=== PATIENT | female | born 1965 | race Caucasian/White ===

== ENCOUNTER 2024-04-06 09:13 | Inpatient (IN) | payer OTHER, SELFPAY ==
[2024-04-06] MEDS ORDERED: fentaNYL 50 mcg/mL 1 mL Vial ONE (09:20)
[2024-04-06] MEDS ORDERED: niCARdipine 25 MG/10 ML SDV ONE (09:26)
[2024-04-06] MEDS ORDERED: Fentanyl CADD 100 ML IV SCH ×2 (09:30→13:00)
[2024-04-06] MEDS ORDERED: Midazolam HCl 2 mg/2 ml Vial ONE (09:32)
[2024-04-06 10:05] LABS: #Basophils Less than 0.03 10x3/uL (0.0-0.2); %Basophils 0.1 % (0.0-1.0); %Eosinophils 2.7 % (0.0-10.0); %Lymphocytes 19.3 % (21.0-51.0); %Monocytes 8.6 % (0.0-10.0); %Neutrophils 68.8 % (42.0-75.0); Hematocrit 32.5 % (36.0-47.0); Hemoglobin 11.3 g/dL (12.0-16.0); Mean Corpuscular HGB CONC 34.8 g/dL (32.0-36.0); Mean Corpuscular Hemoglobin 32.5 pg (27.0-31.0); Mean Corpuscular Volume 93.4 fL (78.0-98.0); Platelet Count 159 10x3/uL (130-400); Red Blood Cell (RBC) Count 3.48 mill/uL (4.20-5.40)
[2024-04-06 10:07] LABS: Actual Bicarbonate (HCO3a) 23.6 mEq/L (22-28); Base Excess (BEa) 23.6 mEq/L (-2.0 to +3.0); CO2 Tension 35.4 mmHg (35.0-45.0); Carboxyhemoglobin (COHb) 1.1 gm% (0.0-3.0); Hematocrit-ABG 36 % (36.0-47.0); Hemoglobin (Hb) 12.2 g/dL (12.0-16.0); pH, Arterial 7.441 (7.35-7.45)
[2024-04-06 10:08] LABS: Analyzer IN Cardio ER; Calcium, Ionized (arterial) 1.09 mmol/L (1.12-1.30); Potassium - ABG Lab 3.22 mmol/L (3.70-5.30)
[2024-04-06 10:19] LABS: INR-International Normal Ratio 1.9; PTT 40.7 sec (22.9-36.1); Prothrombin Time 21.6 sec (12.0-14.7)
[2024-04-06 10:27] LABS: ALT (SGPT) 48 U/L (8-55); AST (SGOT) 89 U/L (5-34); Albumin 1.7 g/dL (3.4-4.8); Anion Gap 9 mmol/L (10-20); BUN (Urea Nitrogen) 7 mg/dL (9.8-20.1); Bilirubin, Total 1.8 mg/dL (0.2-1.2); CK (CPK) 51 U/L (29-168); Calc. Creatinine Clearance 0 mL/min (70-130); Calcium 7.7 mg/dL (7.8-10.44); Carbon Dioxide 22 mmol/L (23-31); Chloride 106 mmol/L (98-107); Estimated GFR 110; Globulin 5.3 g/dL (2.4-3.5); Glucose 121 mg/dL (80-115); Potassium 3.3 mmol/L (3.5-5.1); Sodium 134 mmol/L (136-145)
[2024-04-06 10:32] LABS: Bacteria/HPF None Seen HPF (None Seen); Bilirubin Negative (Negative); Blood, Urine Negative (Negative); CAUTI Indications for Culture Alt mental st,lethar; Clarity Clear (Clear); Glucose, Urine (Dipstick) Normal (Negative); Ketone, Urine Negative (Negative); Leukocyte Negative Leu/uL (Negative); Nitrite Negative (Negative); Protein, Urine (Dipstick) Negative (Neg-Trace); RBC/HPF None Seen HPF (0-3); Squamous Epithelial 0-3 HPF (0-3); Urobilinogen Normal mg/dL (Less than 2); WBC/HPF 0-3 HPF (0-3); pH, Urine 6.5 (5.0-9.0)
[2024-04-06 10:33] LABS: Specific Gravity, Urine Greater than 1.060 (1.002-1.036); Urine Culture Reflex No No
[2024-04-06 11:07] LABS: Troponin I Less than 0.010 ng/mL (< 0.028)
[2024-04-06 11:29] LABS: Alkaline Phosphatase 82 U/L (40-110)
[2024-04-06] MEDS ORDERED: Mag-Al 1200 mg/1200 mg/30 ML UDCUP PO PRN (11:57)
[2024-04-06] MEDS ORDERED: Milk Of Magnesia 30 ML UDCUP PO PRN (11:57)
[2024-04-06] MEDS ORDERED: Ventilator Sedation Protocol 1 EACH FS SCH (12:00)
[2024-04-06 12:33] LABS: Amphetamine Detected (NotDetected); Barbiturates Screen Not Detected (NotDetected); Benzodiazepine Screen Not Detected (NotDetected); Cocaine Metabolite Screen Not Detected (NotDetected); Methadone Not Detected (NotDetected); Methamphetamine Detected (NotDetected); Opiate Screen Not Detected (NotDetected); Oxycodone Screen Not Detected (NotDetected); Phencyclidine (PCP) Not Detected (NotDetected); THC/Cannabinoid Screen Not Detected (NotDetected); Tricyclic Screen Not Detected (NotDetected)
[2024-04-06] MEDS ORDERED: Fentanyl BOLUS 250 ML IVPB PRN (13:00)
[2024-04-06] MEDS ORDERED: Propofol BOLUS 1,000 MG/100 ML VIAL IV PRN (13:00)
[2024-04-06] MEDS ORDERED: Propofol 1,000 MG/100 ML VIAL IV PRN (13:00)
[2024-04-06] MEDS ORDERED: DISCONTINUE PREVIOUS NARCOTIC PAIN MEDICATIONS AND BENZODIAZEPINES FS SCH (13:00)
[2024-04-06] MEDS ORDERED: Electrolyte Replacement Protocol FS PRN (13:15)
[2024-04-06] MEDS: Sodium Chloride 0.9% 1,000 ML IV SCH (14:44)
[2024-04-06] MEDS ORDERED: Iopamidol-370 76% 500 ML MDV (1 ML CHARGE) ONE (14:50)
[2024-04-06 15:21] LABS: Lactic Acid 3.26 mmol/L (0.5-2.2)
[2024-04-06] MEDS: Electrolyte Replacement Protocol 1 EACH IVPB ONE (16:28)
[2024-04-06] MEDS: Potassium Chloride 20 MEQ in Premix 1 BAG IVPB SCH (16:29)
[2024-04-06 16:40] LABS: Platelet Count 166 10x3/uL (130-400)
[2024-04-06 16:52] LABS: Lactic Acid 3.03 mmol/L (0.5-2.2)
[2024-04-06 16:57] LABS: Acetaminophen Less than 10 mcg/mL (Less than 10); Alcohol Less than 10.0 mg/dL (Less than 10); Salicylate Less than 8.0 mg/dL (Less than 8.0)
[2024-04-06 16:59] LABS: Fibrinogen 170 mg/dL (253-463); INR-International Normal Ratio 1.5; PTT 36.6 sec (22.9-36.1); Prothrombin Time 18.3 sec (12.0-14.7)
[2024-04-06 17:07] LABS: D-Dimer Test 16.49 mcg/mL (0.27-0.43)
[2024-04-06] MEDS: Famotidine/PF 20 mg/2ml Vial SLOW IVP SCH (20:28)
[2024-04-06 22:19] LABS: Amphetamine Detected (NotDetected); Barbiturates Screen Not Detected (NotDetected); Benzodiazepine Screen Not Detected (NotDetected); Cocaine Metabolite Screen Not Detected (NotDetected); Methadone Not Detected (NotDetected); Methamphetamine Detected (NotDetected); Opiate Screen Not Detected (NotDetected); Oxycodone Screen Not Detected (NotDetected); Phencyclidine (PCP) Not Detected (NotDetected); THC/Cannabinoid Screen Not Detected (NotDetected); Tricyclic Screen Not Detected (NotDetected)
[2024-04-07 01:18] LABS: Potassium 4.5 mmol/L (3.5-5.1)
[2024-04-07 04:59] LABS: #Basophils 0.03 10x3/uL (0.0-0.2); %Basophils 0.2 % (0.0-1.0); %Lymphocytes 30.9 % (21.0-51.0); %Neutrophils 50.3 % (42.0-75.0); Hematocrit 33.4 % (36.0-47.0); Hemoglobin 11.3 g/dL (12.0-16.0); Mean Corpuscular HGB CONC 33.8 g/dL (32.0-36.0); Mean Corpuscular Volume 94.6 fL (78.0-98.0); Mean Platelet Volume 10.9 fL (7.4-10.4); Platelet Count 162 10x3/uL (130-400); RBC Distribution Width 15.4 % (11.5-14.5); Red Blood Cell (RBC) Count 3.53 mill/uL (4.20-5.40)
[2024-04-07 05:30] LABS: ALT (SGPT) 50 U/L (8-55); AST (SGOT) 92 U/L (5-34); Albumin 2.1 g/dL (3.5-5.0); Alkaline Phosphatase 85 U/L (40-110); Anion Gap 10 mmol/L (10-20); BUN (Urea Nitrogen) 11 mg/dL (9.8-20.1); Calc. Creatinine Clearance 106 mL/min (70-130); Calcium 8.1 mg/dL (7.8-10.44); Carbon Dioxide 22 mmol/L (22-29); Chloride 110 mmol/L (98-107); Estimated GFR 102; Globulin 5.8 g/dL (2.4-3.5); Glucose 84 mg/dL (70-105); Potassium 3.7 mmol/L (3.5-5.1); Protein, Total 7.9 g/dL (6.0-8.3); Sodium 138 mmol/L (136-145)
[2024-04-07 08:51] LABS: INR-International Normal Ratio 1.5; PTT 36.5 sec (22.9-36.1); Prothrombin Time 18.4 sec (12.0-14.7)
[2024-04-07] MEDS: Labetalol HCl 100 MG/20 ML VIAL SLOW IVP PRN (12:11)
[2024-04-07] MEDS: niCARdipine 25 MG in Sodium Chloride 0.9% 250 ML 250 ML IVPB PRN (18:53)
[2024-04-08 04:13] LABS: #Basophils Less than 0.03 10x3/uL (0.0-0.2); %Basophils 0.2 % (0.0-1.0); %Eosinophils 3.7 % (0.0-10.0); %Lymphocytes 18.1 % (21.0-51.0); %Monocytes 12.9 % (0.0-10.0); %Neutrophils 64.7 % (42.0-75.0); Hematocrit 31.6 % (36.0-47.0); Hemoglobin 10.4 g/dL (12.0-16.0); Mean Corpuscular HGB CONC 32.9 g/dL (32.0-36.0); Mean Corpuscular Hemoglobin 32.2 pg (27.0-31.0); Mean Corpuscular Volume 97.8 fL (78.0-98.0); Platelet Count 149 10x3/uL (130-400); RBC Distribution Width 15.2 % (11.5-14.5); Red Blood Cell (RBC) Count 3.23 mill/uL (4.20-5.40)
[2024-04-08 04:40] LABS: Anion Gap 10 mmol/L (10-20); BUN (Urea Nitrogen) 10 mg/dL (9.8-20.1); Calc. Creatinine Clearance 153 mL/min (70-130); Calcium 6.5 mg/dL (7.8-10.44); Carbon Dioxide 16 mmol/L (22-29); Chloride 116 mmol/L (98-107); Estimated GFR 111; Glucose 88 mg/dL (70-105); Potassium 3.1 mmol/L (3.5-5.1); Sodium 139 mmol/L (136-145)
[2024-04-08] MEDS: CALCIUM GLUC 1 GM/NS 50 ML 1 GM in Premix 1 BAG IVPB SCH (04:49)
[2024-04-08] MEDS ORDERED: Electrolyte Replacement Protocol FS PRN (06:15)
[2024-04-08 07:12] LABS: Actual Bicarbonate (HCO3a) 21.6 mEq/L (22-28); Base Excess (BEa) -0.1 mEq/L (-2.0 to +3.0); CO2 Tension 27.1 mmHg (35.0-45.0); Calcium, Ionized (arterial) 1.19 mmol/L (1.12-1.30); Carboxyhemoglobin (COHb) 1.2 gm% (0.0-3.0); Hematocrit-ABG 37 % (36.0-47.0); Hemoglobin (Hb) 12.7 g/dL (12.0-16.0); O2 Tension (PaO2), arterial 79.5 mmHg (> 80.0); Potassium - ABG Lab 3.75 mmol/L (3.70-5.30); pH, Arterial 7.519 (7.35-7.45)
[2024-04-08 07:31] LABS: ALV-art Gradient 171.825 mmHg (0-20); Puncture Site Right Brachial art
[2024-04-08] MEDS: Acetaminophen 325 MG TAB PO PRN (07:47)
[2024-04-08] MEDS: Potassium Chloride 20 MEQ in Premix 1 BAG IVPB SCH (07:48)
[2024-04-08] MEDS: Scopolamine 1 mg/72 hour Patch TD SCH (09:48)
[2024-04-09] MEDS: Acetaminophen 650 MG/20.3 ML UDCUP PO PRN (00:47)
[2024-04-09 05:31] LABS: Hematocrit 32.2 % (36.0-47.0); Hemoglobin 10.6 g/dL (12.0-16.0); Mean Corpuscular HGB CONC 32.9 g/dL (32.0-36.0); Mean Corpuscular Hemoglobin 32.2 pg (27.0-31.0); Mean Corpuscular Volume 97.9 fL (78.0-98.0); Mean Platelet Volume 11.6 fL (7.4-10.4); Platelet Count 121 10x3/uL (130-400); RBC Distribution Width 15.1 % (11.5-14.5); Red Blood Cell (RBC) Count 3.29 mill/uL (4.20-5.40)
[2024-04-09 05:44] LABS: Anion Gap 8 mmol/L (10-20); BUN (Urea Nitrogen) 18 mg/dL (9.8-20.1); Calc. Creatinine Clearance 118 mL/min (70-130); Calcium 8.3 mg/dL (7.8-10.44); Carbon Dioxide 24 mmol/L (22-29); Chloride 111 mmol/L (98-107); Estimated GFR 105; Glucose 134 mg/dL (70-105); Potassium 3.8 mmol/L (3.5-5.1); Sodium 139 mmol/L (136-145)
[2024-04-09 06:05] LABS: Anisocytosis SLIGHT = 6-15 cells HPF (0-5); Band 5 % (5-11); Eosinophils 9 % (0-10); Hypochromia SLIGHT = 6-15 cells HPF (0-5); Lymphocytes 9 % (21-51); Monocytes 16 % (0-10); Neutrophil 59 % (42-75); Platelet Adequacy Comment Platelets Normal; Reactive Lymphocytes 1 % (0-10)
[2024-04-09] MEDS: hydrALAZINE 20 MG/ML VIAL SLOW IVP PRN (21:44)
[2024-04-10 03:55] LABS: #Basophils 0.06 10x3/uL (0.0-0.2); %Basophils 0.5 % (0.0-1.0); %Eosinophils 5.5 % (0.0-10.0); %Lymphocytes 29.6 % (21.0-51.0); %Monocytes 16.9 % (0.0-10.0); %Neutrophils 46.9 % (42.0-75.0); Hematocrit 33.4 % (36.0-47.0); Hemoglobin 11.2 g/dL (12.0-16.0); Mean Corpuscular HGB CONC 33.5 g/dL (32.0-36.0); Mean Corpuscular Hemoglobin 33.8 pg (27.0-31.0); Mean Corpuscular Volume 100.9 fL (78.0-98.0); Mean Platelet Volume 12.4 fL (7.4-10.4); Platelet Count 107 10x3/uL (130-400); Red Blood Cell (RBC) Count 3.31 mill/uL (4.20-5.40)
[2024-04-10 04:09] LABS: ALT (SGPT) 40 U/L (8-55); AST (SGOT) 82 U/L (5-34); Albumin 1.9 g/dL (3.5-5.0); Alkaline Phosphatase 76 U/L (40-110); Anion Gap 11 mmol/L (10-20); BUN (Urea Nitrogen) 17 mg/dL (9.8-20.1); Bilirubin, Total 2.2 mg/dL (0.2-1.2); Calc. Creatinine Clearance 118 mL/min (70-130); Calcium 8.2 mg/dL (7.8-10.44); Carbon Dioxide 23 mmol/L (22-29); Chloride 111 mmol/L (98-107); Estimated GFR 104; Globulin 6.7 g/dL (2.4-3.5); Glucose 141 mg/dL (70-105); Potassium 4.1 mmol/L (3.5-5.1); Protein, Total 8.6 g/dL (6.0-8.3); Sodium 141 mmol/L (136-145)
[2024-04-10] MEDS: Piperacillin/Tazobactam 3.375 GM in Sodium Chloride 0.9% 100 ML IVPB SCH ×2 (08:55→13:45)
[2024-04-10] MEDS: Lorazepam 2 MG/ML VIAL SLOW IVP PRN (17:49)
[2024-04-10] MEDS: Morphine 2 MG/ML VIAL SLOW IVP PRN (20:51)
[2024-04-11 04:15] LABS: #Basophils 0.06 10x3/uL (0.0-0.2); %Basophils 0.5 % (0.0-1.0); %Eosinophils 9.7 % (0.0-10.0); %Lymphocytes 24.6 % (21.0-51.0); %Monocytes 15.2 % (0.0-10.0); %Neutrophils 49.2 % (42.0-75.0); Hematocrit 33.1 % (36.0-47.0); Hemoglobin 10.8 g/dL (12.0-16.0); Mean Corpuscular HGB CONC 32.6 g/dL (32.0-36.0); Mean Corpuscular Hemoglobin 33.1 pg (27.0-31.0); Mean Corpuscular Volume 101.5 fL (78.0-98.0); Mean Platelet Volume 12.1 fL (7.4-10.4); Platelet Count 105 10x3/uL (130-400); RBC Distribution Width 15.1 % (11.5-14.5); Red Blood Cell (RBC) Count 3.26 mill/uL (4.20-5.40)
[2024-04-11 04:59] LABS: Anion Gap 9 mmol/L (10-20); BUN (Urea Nitrogen) 19 mg/dL (9.8-20.1); Calc. Creatinine Clearance 125 mL/min (70-130); Calcium 8.1 mg/dL (7.8-10.44); Carbon Dioxide 23 mmol/L (22-29); Chloride 114 mmol/L (98-107); Estimated GFR 105; Glucose 111 mg/dL (70-105); Potassium 3.7 mmol/L (3.5-5.1); Sodium 142 mmol/L (136-145)
[2024-04-11 11:52] VITALS: BMI 25.9
[2024-04-11] MEDS: Senokot 8.6 MG TAB PO PRN (14:52)
[2024-04-11] MEDS: Polyethylene Glycol 3350 17 GM Packet PER TUBE SCH (14:52)
[2024-04-11] MEDS: Docusate Sodium 100 MG/10 ML UDCUP PO SCH (20:20)
[2024-04-12 03:29] LABS: #Basophils 0.06 10x3/uL (0.0-0.2); %Basophils 0.6 % (0.0-1.0); %Eosinophils 10.2 % (0.0-10.0); %Lymphocytes 19.1 % (21.0-51.0); %Monocytes 13.1 % (0.0-10.0); %Neutrophils 56.3 % (42.0-75.0); Hematocrit 32.4 % (36.0-47.0); Hemoglobin 10.2 g/dL (12.0-16.0); Mean Corpuscular HGB CONC 31.5 g/dL (32.0-36.0); Mean Corpuscular Volume 101.6 fL (78.0-98.0); Mean Platelet Volume 12.3 fL (7.4-10.4); Platelet Count 97 10x3/uL (130-400); RBC Distribution Width 15.4 % (11.5-14.5); Red Blood Cell (RBC) Count 3.19 mill/uL (4.20-5.40)
[2024-04-12 03:47] LABS: Anion Gap 9 mmol/L (10-20); BUN (Urea Nitrogen) 18 mg/dL (9.8-20.1); Calc. Creatinine Clearance 133 mL/min (70-130); Carbon Dioxide 26 mmol/L (22-29); Chloride 114 mmol/L (98-107); Estimated GFR 106; Glucose 121 mg/dL (70-105); Potassium 3.9 mmol/L (3.5-5.1); Sodium 145 mmol/L (136-145)
[2024-04-12] MEDS: Polyethylene Glycol 3350 17 GM Packet PER TUBE SCH (09:54)
[2024-04-13 04:36] LABS: #Basophils 0.12 10x3/uL (0.0-0.2); %Basophils 0.9 % (0.0-1.0); %Eosinophils 6.8 % (0.0-10.0); %Lymphocytes 22.5 % (21.0-51.0); %Monocytes 13.6 % (0.0-10.0); %Neutrophils 55.1 % (42.0-75.0); Hematocrit 35.8 % (36.0-47.0); Hemoglobin 11.9 g/dL (12.0-16.0); Mean Corpuscular HGB CONC 33.2 g/dL (32.0-36.0); Mean Corpuscular Hemoglobin 32.9 pg (27.0-31.0); Mean Corpuscular Volume 98.9 fL (78.0-98.0); Mean Platelet Volume 13.3 fL (7.4-10.4); Platelet Count 135 10x3/uL (130-400); RBC Distribution Width 16.1 % (11.5-14.5); Red Blood Cell (RBC) Count 3.62 mill/uL (4.20-5.40)
[2024-04-13 04:46] LABS: Anion Gap 12 mmol/L (10-20); BUN (Urea Nitrogen) 20 mg/dL (9.8-20.1); Calc. Creatinine Clearance 126 mL/min (70-130); Calcium 8.4 mg/dL (7.8-10.44); Carbon Dioxide 22 mmol/L (22-29); Chloride 114 mmol/L (98-107); Estimated GFR 104; Glucose 133 mg/dL (70-105); Potassium 4.1 mmol/L (3.5-5.1); Sodium 144 mmol/L (136-145)
[2024-04-13 05:08] VITALS: BMI 26.9
[2024-04-13] MEDS: Ondansetron PF 4 MG/2 ML Vial IVP PRN (11:13)
[2024-04-13] MEDS: Acetaminophen 650 MG Suppository PR PRN (11:17)
[2024-04-13] MEDS: Amlodipine 5 MG TAB PO SCH (12:14)
[2024-04-13 18:55] LABS: #Basophils 0.09 10x3/uL (0.0-0.2); %Basophils 0.7 % (0.0-1.0); %Eosinophils 3.3 % (0.0-10.0); %Lymphocytes 24.1 % (21.0-51.0); %Monocytes 15.9 % (0.0-10.0); %Neutrophils 54.3 % (42.0-75.0); Hematocrit 33.3 % (36.0-47.0); Hemoglobin 10.8 g/dL (12.0-16.0); Mean Corpuscular HGB CONC 32.4 g/dL (32.0-36.0); Mean Corpuscular Hemoglobin 32.7 pg (27.0-31.0); Mean Corpuscular Volume 100.9 fL (78.0-98.0); Mean Platelet Volume 13.1 fL (7.4-10.4); Platelet Count 121 10x3/uL (130-400); RBC Distribution Width 16.3 % (11.5-14.5)
[2024-04-13 19:04] LABS: INR-International Normal Ratio 1.5; Prothrombin Time 18.4 sec (12.0-14.7)
[2024-04-13 19:05] LABS: PTT 32.1 sec (22.9-36.1)
[2024-04-13 19:20] LABS: Hemoglobin A1c Less than 4.0 % (4.0-6.0); Phosphorus 3.7 mg/dL (2.5-4.5)
[2024-04-13 19:22] LABS: ALT (SGPT) 57 U/L (Less than 34); AST (SGOT) 147 U/L (11-34); Albumin 1.8 g/dL (3.1-4.5); Alkaline Phosphatase 75 U/L (40-110); Anion Gap 11 mmol/L (10-20); BUN (Urea Nitrogen) 22 mg/dL (9.8-20.1); Bilirubin, Total 2.3 mg/dL (0.3-1.2); Calc. Creatinine Clearance 110 mL/min (70-130); Calcium 8.3 mg/dL (7.8-10.44); Carbon Dioxide 24 mmol/L (22-29); Chloride 114 mmol/L (98-107); Estimated GFR 101; Globulin 6.4 g/dL (2.4-3.5); Glucose 136 mg/dL (70-105); Magnesium 2.2 mg/dL (1.6-2.6); Potassium 3.6 mmol/L (3.5-5.1); Protein, Total 8.2 g/dL (6.0-8.3); Sodium 145 mmol/L (136-145)
[2024-04-13] MEDS: Hydrocortisone Sod Succ/PF 100 mg/2 ml Vial IVP SCH (19:53)
[2024-04-13 20:01] LABS: Macrocytosis SLIGHT = 6-15 cells HPF (0-5); Platelet Adequacy Comment Platelets Decreased; Polychromasia SLIGHT = 2-3 cells HPF (0-2); Target Cells SLIGHT = 2-5 cells HPF (0-1)
[2024-04-13 20:48] LABS: Actual Bicarbonate (HCO3a) 23.6 mEq/L (22-28); Base Excess (BEa) 2.6 mEq/L (-2.0 to +3.0); CO2 Tension 25.7 mmHg (35.0-45.0); Calcium, Ionized (arterial) 1.15 mmol/L (1.12-1.30); Carboxyhemoglobin (COHb) 0.3 gm% (0.0-3.0); Hematocrit-ABG 33 % (36.0-47.0); Hemoglobin (Hb) 11.3 g/dL (12.0-16.0); O2 Tension (PaO2), arterial 415.1 mmHg (> 80.0); Potassium - ABG Lab 3.63 mmol/L (3.70-5.30)
[2024-04-13 20:50] LABS: ALV-art Gradient 265.775 mmHg (0-20); Puncture Site Arterial Line
[2024-04-13] MEDS: Albumin 25% 25 GM (100 mL) BOT IVPB SCH (20:53)
[2024-04-13] MEDS ORDERED: DISCONTINUE PREVIOUS NARCOTIC PAIN MEDICATIONS AND BENZODIAZEPINES FS SCH (21:15)
[2024-04-13] MEDS ORDERED: Fentanyl BOLUS 250 ML IVPB PRN (21:15)
[2024-04-13] MEDS ORDERED: Propofol BOLUS 1,000 MG/100 ML VIAL IV PRN (21:15)
[2024-04-13] MEDS ORDERED: Ventilator Sedation Protocol 1 EACH FS SCH (21:15)
[2024-04-13] MEDS: Furosemide 40 MG (4 mL) VIAL SLOW IVP SCH (21:32)
[2024-04-13] MEDS: Potassium Chloride 20 MEQ in Premix 1 BAG IVPB SCH (21:40)
[2024-04-13] MEDS: Propofol 1,000 MG/100 ML VIAL IV PRN (21:49)
[2024-04-13] MEDS: Ipratropium/Albuterol 3 ML NEB NEB SCH (22:32)
[2024-04-13 22:35] VITALS: BP 151/70
[2024-04-14] MEDS: Hydrocortisone Sod Succ/PF 100 mg/2 ml Vial IVP SCH (03:51)
[2024-04-14 05:26] LABS: Actual Bicarbonate (HCO3a) 21.9 mEq/L (22-28); Base Excess (BEa) 0.6 mEq/L (-2.0 to +3.0); Calcium, Ionized (arterial) 1.13 mmol/L (1.12-1.30); Carboxyhemoglobin (COHb) 0.2 gm% (0.0-3.0); Hematocrit-ABG 29 % (36.0-47.0); O2 Tension (PaO2), arterial 401.1 mmHg (> 80.0); Potassium - ABG Lab 3.36 mmol/L (3.70-5.30); pH, Arterial 7.562 (7.35-7.45)
[2024-04-14 05:28] LABS: CO2 Tension 24.9 mmHg (35.0-45.0); Puncture Site Arterial Line
[2024-04-14 05:29] LABS: ALV-art Gradient 280.775 mmHg (0-20)
[2024-04-14 05:41] LABS: #Basophils 0.04 10x3/uL (0.0-0.2); %Basophils 0.4 % (0.0-1.0); %Eosinophils 0.4 % (0.0-10.0); %Lymphocytes 15.2 % (21.0-51.0); %Monocytes 6.2 % (0.0-10.0); %Neutrophils 76.1 % (42.0-75.0); Hemoglobin 9.5 g/dL (12.0-16.0); Mean Corpuscular HGB CONC 32.8 g/dL (32.0-36.0); Mean Corpuscular Hemoglobin 33.5 pg (27.0-31.0); Mean Corpuscular Volume 102.1 fL (78.0-98.0); Platelet Count 99 10x3/uL (130-400); RBC Distribution Width 16.3 % (11.5-14.5); Red Blood Cell (RBC) Count 2.84 mill/uL (4.20-5.40)
[2024-04-14 06:17] LABS: Anion Gap 13 mmol/L (10-20); BUN (Urea Nitrogen) 23 mg/dL (9.8-20.1); Calc. Creatinine Clearance 104 mL/min (70-130); Calcium 8.4 mg/dL (7.8-10.44); Carbon Dioxide 24 mmol/L (22-29); Chloride 114 mmol/L (98-107); Estimated GFR 100; Glucose 147 mg/dL (70-105); Potassium 3.5 mmol/L (3.5-5.1); Sodium 147 mmol/L (136-145)
[2024-04-14] MEDS: Lorazepam 2 MG/ML VIAL SLOW IVP PRN (06:34)
[2024-04-14 06:47] LABS: INR-International Normal Ratio 1.6; Prothrombin Time 19.4 sec (12.0-14.7)
[2024-04-14 06:48] LABS: PTT 34.2 sec (22.9-36.1)
[2024-04-14 06:52] LABS: Phosphorus 3.3 mg/dL (2.5-4.5)
[2024-04-14 06:53] LABS: Lactic Acid 1.56 mmol/L (0.50-2.20)
[2024-04-14 06:55] LABS: CK (CPK) 51 U/L (29-168); Lipase 79 U/L (8-78)
[2024-04-14] MEDS ORDERED: acetaZOLAMIDE Sodium 500 MG in Sodium Chloride 0.9% 50 ML IVPB SCH (07:00)
[2024-04-14 07:01] LABS: Troponin I 0.046 ng/mL (< 0.028)
[2024-04-14 07:26] VITALS: TEMP 98
[2024-04-14 07:45] LABS: Bacteria/HPF None Seen HPF (None Seen); RBC/HPF 0-3 HPF (0-3); Squamous Epithelial 0-3 HPF (0-3); WBC/HPF 0-3 HPF (0-3)
[2024-04-14] MEDS ORDERED: Potassium Chloride 20 MEQ TAB PO SCH (08:00)
[2024-04-14 08:32] LABS: ALT (SGPT) 50 U/L (Less than 34); AST (SGOT) 124 U/L (11-34); Albumin 2.6 g/dL (3.1-4.5); Anion Gap 10 mmol/L (10-20); BUN (Urea Nitrogen) 23 mg/dL (9.8-20.1); Calc. Creatinine Clearance 111 mL/min (70-130); Calcium 8.6 mg/dL (7.8-10.44); Carbon Dioxide 24 mmol/L (22-29); Chloride 116 mmol/L (98-107); Estimated GFR 102; Globulin 5.4 g/dL (2.4-3.5); Glucose 146 mg/dL (70-105); Magnesium 2.3 mg/dL (1.6-2.6); Potassium 3.4 mmol/L (3.5-5.1); Sodium 147 mmol/L (136-145)
[2024-04-14] MEDS: Albumin 25% 25 GM (100 mL) BOT IVPB SCH ×2 (08:32→15:46)
[2024-04-14] MEDS: Potassium Chloride 40 MEQ in Premix 1 BAG IVPB SCH ×2 (08:32→20:29)
[2024-04-14] MEDS: Furosemide 40 MG (4 mL) VIAL SLOW IVP SCH (08:33)
[2024-04-14] MEDS: Sterile Water 10 ML VIAL IVP SCH (08:33)
[2024-04-14] MEDS: acetaZOLAMIDE Sodium 500 mg Vial IVP SCH (08:33)
[2024-04-14] MEDS: Amlodipine 5 MG TAB PO SCH (08:33)
[2024-04-14] MEDS: Fentanyl CADD 100 ML IV SCH (08:33)
[2024-04-14 09:29] LABS: Alkaline Phosphatase 59 U/L (40-110)
[2024-04-14] MEDS: Vancomycin (BATCH) 1.5 GM in Premix 1 BAG IVPB SCH (10:52)
[2024-04-14] MEDS: Vecuronium 10 MG VIAL IV SCH (12:48)
[2024-04-14] MEDS ORDERED: Iopamidol-370 76% 500 ML MDV (1 ML CHARGE) ONE (13:13)
[2024-04-14] MEDS ORDERED: Albumin 25% 25 GM (100 mL) BOT IVPB SCH (15:45)
[2024-04-14 17:12] LABS: Actual Bicarbonate (HCO3a) 21.7 mEq/L (22-28); Base Excess (BEa) -2.6 mEq/L (-2.0 to +3.0); CO2 Tension 35.1 mmHg (35.0-45.0); Calcium, Ionized (arterial) 1.19 mmol/L (1.12-1.30); Carboxyhemoglobin (COHb) 0.7 gm% (0.0-3.0); Hematocrit-ABG 26 % (36.0-47.0); Hemoglobin (Hb) 8.8 g/dL (12.0-16.0); O2 Tension (PaO2), arterial 308.8 mmHg (> 80.0); Potassium - ABG Lab 2.73 mmol/L (3.70-5.30); pH, Arterial 7.409 (7.35-7.45)
[2024-04-14 17:14] LABS: ALV-art Gradient 360.325 mmHg (0-20); Puncture Site Arterial Line
[2024-04-14 19:10] LABS: Troponin I 0.028 ng/mL (< 0.028)
[2024-04-14 19:16] LABS: ALT (SGPT) 33 U/L (Less than 34); AST (SGOT) 74 U/L (11-34); Albumin 4.5 g/dL (3.1-4.5); Alkaline Phosphatase 38 U/L (40-110); Anion Gap 14 mmol/L (10-20); BUN (Urea Nitrogen) 22 mg/dL (9.8-20.1); Bilirubin, Total 2.5 mg/dL (0.3-1.2); CK (CPK) 33 U/L (29-168); Calc. Creatinine Clearance 100 mL/min (70-130); Calcium 8.9 mg/dL (7.8-10.44); Carbon Dioxide 24 mmol/L (22-29); Chloride 116 mmol/L (98-107); Estimated GFR 99; Globulin 3.7 g/dL (2.4-3.5); Glucose 123 mg/dL (70-105); Lipase 26 U/L (8-78); Potassium 2.7 mmol/L (3.5-5.1); Protein, Total 8.2 g/dL (6.0-8.3); Sodium 151 mmol/L (136-145)
[2024-04-14 20:42] LABS: Bacteria/HPF None Seen HPF (None Seen); RBC/HPF 0-3 HPF (0-3); Squamous Epithelial None Seen HPF (0-3); WBC/HPF 0-3 HPF (0-3)
[2024-04-14 21:09] LABS: Bilirubin Negative (Negative); Blood, Urine Negative (Negative); Glucose, Urine (Dipstick) Negative (Negative); Ketone, Urine Negative (Negative); Leukocyte Negative (Negative); Nitrite Negative (Negative); Protein, Urine (Dipstick) Negative (Neg-Trace); Specific Gravity, Urine 1.015 (1.005-1.030); Urobilinogen 0.2 mg/dL (Less than 2); pH, Urine 6.5 (5.0-9.0)
[2024-04-14 21:10] LABS: Clarity Clear (Clear)
[2024-04-14 21:20] LABS: Actual Bicarbonate (HCO3a) 21.5 mEq/L (22-28); CO2 Tension 35.8 mmHg (35.0-45.0); Calcium, Ionized (arterial) 1.18 mmol/L (1.12-1.30); Carboxyhemoglobin (COHb) 0.2 gm% (0.0-3.0); Hematocrit-ABG 25 % (36.0-47.0); Hemoglobin (Hb) 8.6 g/dL (12.0-16.0); O2 Tension (PaO2), arterial 271.7 mmHg (> 80.0); Potassium - ABG Lab 2.95 mmol/L (3.70-5.30); pH, Arterial 7.396 (7.35-7.45)
[2024-04-14 21:22] LABS: Puncture Site Arterial Line
[2024-04-14] MEDS ORDERED: Vancomycin (BATCH) 1.25 GM in Premix 1 BAG IVPB SCH (23:00)
[2024-04-15] MEDS: Potassium Chloride 20 MEQ in Premix 1 BAG IVPB SCH (00:55)
[2024-04-15] MEDS: VANCOMYCIN 1.25 GM/250 ML BAG 1.25 GM in Premix 1 BAG IVPB SCH ×2 (00:55→11:37)
[2024-04-15 03:39] LABS: #Basophils Less than 0.03 10x3/uL (0.0-0.2); #Eosinophils Less than 0.03 10x3/uL (0.0-0.7); %Basophils 0.2 % (0.0-1.0); %Lymphocytes 10.6 % (21.0-51.0); %Monocytes 8.8 % (0.0-10.0); %Neutrophils 79.1 % (42.0-75.0); Hematocrit 26.1 % (36.0-47.0); Hemoglobin 8.2 g/dL (12.0-16.0); Mean Corpuscular HGB CONC 31.4 g/dL (32.0-36.0); Mean Corpuscular Volume 108.3 fL (78.0-98.0); Mean Platelet Volume 14.1 fL (7.4-10.4); Platelet Count 73 10x3/uL (130-400); Red Blood Cell (RBC) Count 2.41 mill/uL (4.20-5.40)
[2024-04-15 04:04] LABS: Anion Gap 13 mmol/L (10-20); BUN (Urea Nitrogen) 27 mg/dL (9.8-20.1); Calc. Creatinine Clearance 92 mL/min (70-130); Calcium 8.8 mg/dL (7.8-10.44); Carbon Dioxide 21 mmol/L (22-29); Chloride 119 mmol/L (98-107); Estimated GFR 91; Glucose 121 mg/dL (70-105); Potassium 3.5 mmol/L (3.5-5.1); Sodium 149 mmol/L (136-145)
[2024-04-15 04:06] LABS: Vancomycin, Random 12.9 ug/mL (See Comment)
[2024-04-15 06:23] LABS: Troponin I 0.099 ng/mL (< 0.028)
[2024-04-15 06:30] LABS: ALT (SGPT) 31 U/L (Less than 34); AST (SGOT) 66 U/L (11-34); Albumin 3.8 g/dL (3.1-4.5); Alkaline Phosphatase 36 U/L (40-110); Amylase 55 U/L (25-125); Anion Gap 10 mmol/L (10-20); BUN (Urea Nitrogen) 27 mg/dL (9.8-20.1); Bilirubin, Total 2.1 mg/dL (0.3-1.2); CK (CPK) 30 U/L (29-168); Calc. Creatinine Clearance 91 mL/min (70-130); Calcium 8.7 mg/dL (7.8-10.44); Carbon Dioxide 23 mmol/L (22-29); Chloride 118 mmol/L (98-107); Estimated GFR 91; Globulin 3.8 g/dL (2.4-3.5); Glucose 128 mg/dL (70-105); Potassium 3.3 mmol/L (3.5-5.1); Protein, Total 7.6 g/dL (6.0-8.3); Sodium 148 mmol/L (136-145)
[2024-04-15] MEDS: Furosemide 40 MG (4 mL) VIAL SLOW IVP SCH (06:30)
[2024-04-15] MEDS: Potassium Chloride 40 MEQ in Premix 1 BAG IVPB SCH ×2 (07:26→12:32)
[2024-04-15 08:01] LABS: Bacteria/HPF None Seen HPF (None Seen); Bilirubin Negative (Negative); Blood, Urine Negative (Negative); Clarity Clear (Clear); Glucose, Urine (Dipstick) Normal (Negative); Ketone, Urine Negative (Negative); Leukocyte Negative Leu/uL (Negative); Nitrite Negative (Negative); Protein, Urine (Dipstick) Negative (Neg-Trace); RBC/HPF 0-3 HPF (0-3); Specific Gravity, Urine 1.022 (1.002-1.036); Squamous Epithelial None Seen HPF (0-3); Urobilinogen Normal mg/dL (Less than 2); WBC/HPF 0-3 HPF (0-3); pH, Urine 5.5 (5.0-9.0)
[2024-04-15 11:39] LABS: #Basophils Less than 0.03 10x3/uL (0.0-0.2); #Eosinophils Less than 0.03 10x3/uL (0.0-0.7); %Basophils 0.1 % (0.0-1.0); %Lymphocytes 10.4 % (21.0-51.0); %Neutrophils 78.9 % (42.0-75.0); Hematocrit 24.9 % (36.0-47.0); Hemoglobin 7.9 g/dL (12.0-16.0); Mean Corpuscular HGB CONC 31.7 g/dL (32.0-36.0); Mean Corpuscular Hemoglobin 33.6 pg (27.0-31.0); Mean Platelet Volume 13.1 fL (7.4-10.4); Platelet Count 74 10x3/uL (130-400); RBC Distribution Width 16.3 % (11.5-14.5); Red Blood Cell (RBC) Count 2.35 mill/uL (4.20-5.40)
[2024-04-15 11:49] LABS: Phosphorus 3.1 mg/dL (2.5-4.5)
[2024-04-15 11:51] LABS: ALT (SGPT) 30 U/L (Less than 34); AST (SGOT) 61 U/L (11-34); Albumin 3.7 g/dL (3.1-4.5); Alkaline Phosphatase 39 U/L (40-110); Anion Gap 10 mmol/L (10-20); BUN (Urea Nitrogen) 30 mg/dL (9.8-20.1); Calc. Creatinine Clearance 84 mL/min (70-130); Calcium 8.5 mg/dL (7.8-10.44); Carbon Dioxide 24 mmol/L (22-29); Chloride 119 mmol/L (98-107); Estimated GFR 83; Globulin 3.7 g/dL (2.4-3.5); Glucose 138 mg/dL (70-105); Magnesium 2.5 mg/dL (1.6-2.6); Potassium 3.1 mmol/L (3.5-5.1); Protein, Total 7.4 g/dL (6.0-8.3); Sodium 150 mmol/L (136-145)
[2024-04-15] MEDS ORDERED: Lorazepam 2 MG/ML VIAL SLOW IVP PRN (11:54)
[2024-04-15] MEDS ORDERED: Morphine 2 MG/ML VIAL SLOW IVP PRN (12:02)
[2024-04-15] MEDS: Lorazepam 2 MG/ML VIAL SLOW IVP PRN (13:14)
[2024-04-15] MEDS: Morphine 4 MG/ML VIAL SLOW IVP PRN (13:14)
[2024-04-15] MEDS: Morphine 2 MG/ML VIAL SLOW IVP PRN ×2 (14:48→15:09)
[2024-04-15] MEDS: Heparin 10,000 UNITS/1 ML VIAL SLOW IVP SCH (15:09)
== END 2024-04-15 15:41 | disposition expired | DRG 64 ==
LOC: ERS 09:13 → EDBD 12:51 → CCU 12:51
PROVIDERS: ADMIT Family Medicine; ATTEND Internal Medicine
PROC: 0BH17EZ Insertion of Endotracheal Airway into Trachea, Via Natural or Artificial Opening (ICD-10-PCS; 2024-04-06)
PROC: 5A1955Z Respiratory Ventilation, Greater than 96 Consecutive Hours (ICD-10-PCS; 2024-04-06)
PROC: 30233L1 Transfusion of Nonautologous Fresh Plasma into Peripheral Vein, Percutaneous Approach (ICD-10-PCS; 2024-04-06)
PROC: 30233K1 Transfusion of Nonautologous Frozen Plasma into Peripheral Vein, Percutaneous Approach (ICD-10-PCS; 2024-04-06)
PROC: 6A550Z2 Pheresis of Platelets, Single (ICD-10-PCS; 2024-04-06)
PROC: 4A133R1 Monitoring of Arterial Saturation, Peripheral, Percutaneous Approach (ICD-10-PCS; 2024-04-08)
PROC: 3E03329 Introduction of Other Anti-infective into Peripheral Vein, Percutaneous Approach (ICD-10-PCS; 2024-04-10)
PROC: 02HV33Z Insertion of Infusion Device into Superior Vena Cava, Percutaneous Approach (ICD-10-PCS; principal; 2024-04-13)
PROC: B548ZZA Ultrasonography of Superior Vena Cava, Guidance (ICD-10-PCS; 2024-04-13)
PROC: 0B978ZX Drainage of Left Main Bronchus, Via Natural or Artificial Opening Endoscopic, Diagnostic (ICD-10-PCS; 2024-04-14)
PROC: 0B9K8ZX Drainage of Right Lung, Via Natural or Artificial Opening Endoscopic, Diagnostic (ICD-10-PCS; 2024-04-14)
DX: I60.9 Nontraumatic subarachnoid hemorrhage, unspecified (principal); G93.41 Metabolic encephalopathy; J96.01 Acute respiratory failure with hypoxia; E87.20 Acidosis, unspecified; D68.9 Coagulation defect, unspecified; Z66 Do not resuscitate; Z51.5 Encounter for palliative care; I61.5 Nontraumatic intracerebral hemorrhage, intraventricular; F15.10 Other stimulant abuse, uncomplicated; D64.9 Anemia, unspecified; F17.210 Nicotine dependence, cigarettes, uncomplicated; K74.60 Unspecified cirrhosis of liver; R29.724 NIHSS score 24; F10.10 Alcohol abuse, uncomplicated; D72.829 Elevated white blood cell count, unspecified; Y90.0 Blood alcohol level of less than 20 mg/100 ml
CPT/HCPCS: 0042T; 36415; 36416; 36430; 36600; 51702; 70450; 70496; 70498; 70551; 71045; 71270; 74178; 80048; 80053; 80202; 80306; 80307; 81001; 81015; 82140; 82150; 82247; 82248; 82550; 82805; 83036; 83605; 83690; 83735; 83930; 84100; 84484; 85025; 85049; 85300; 85362; 85384; 85610; 85730; 86850; 86900; 86901; 87040; 87077; 87149; 87205; 93005; 93010; 93306; 94002; 94003; 94640; 96365; 96366; 96375; 96376; J0360; J0613; J1120; J1643; J1720; J1940; J2060; J2250; J2270; J2272; J2405; J2543; J2704; J3010; J3370; J3480; J3490; J7030; J7050; J7620; P9035; P9047; P9059; Q9967